=== PATIENT | male | born 1970 | race Caucasian/White ===

== ENCOUNTER 2017-10-07 17:55 | Inpatient (IN) | payer OTHER ==
[2017-10-07 19:38] VITALS: BMI 29.8
--- NOTE | 2017-10-07 20:58 | HP ---
CIWA Score - CIWA Score Nausea/Vomitin-No Nausea/No Vomiting Muscle Tremors: 2 Anxiety: 3 Agitation: 2 Paroxysmal Sweats: 1-Minimal Palms Moist Orientation: 0-Oriented Tacttile Disturbances: 0-None Auditory Disturbances: 0-None Visual Disturbances: 0-None Headache: 0-None Present CIWA-Ar Total Score: 8 Admission ROS S - HPI Chief Complaint: " I am here to detox from the pills and alcohol" Allergies/Adverse Reactions: Allergies Allergy/AdvReac Type Severity Reaction Status Date / Time No Known Allergies Allergy Verified 10/07/17 20:27 History of Present Illness: Patient is a 47 yo male with hx of nicotine, crack/ cocaine, xanax / klonopin. [facility] , on 130 mg qd, last medicated today. Denies suicidal / homicidal ideation or suicide attempts. Reports hx seizure when withdrawing from klonopin, last seizure 1 week ago. PMHX: depression, anxiety, insomnia. Last detox 2 years ago at [facility]. Longest period of sobrierity 6 months. Exam Limitations: No Limitations - Ebola screening Have you traveled outside of the country in the last 21 days: No (N) Have you had contact with anyone from an Ebola affected area: No Have you been sick,other than usual withdrawal symptoms: No Do you have a fever: No - Review of Systems Constitutional: Chills, Changes in sleep, Unintentional Wgt. Loss EENT: reports: See HPI Respiratory: reports: No Symptoms reported Cardiac: reports: No Symptoms Reported GI: reports: Constipated (last BM 2 days ago), Nausea, Poor Appetite, Poor Fluid Intake, Abdominal cramping : reports: No Symptoms Reported Musculoskeletal: reports: No Symptoms Reported Integumentary: reports: No Symptoms Reported Neuro: reports: See HPI Endocrine: reports: Increased Thirst Hematology: reports: No Symptoms Reported Psychiatric: reports: Orientated x3, Anxious, Depressed Other Systems: Reviewed and Negative Patient History - Patient Medical History Hx Anemia: No Hx Asthma: No Hx Chronic Obstructive Pulmonary Disease (COPD): No Hx Cancer: No Hx Cardiac Disorders: No Hx Congestive Heart Failure: No Hx Hypertension: No Hx Hypercholesterolemia: No Hx Pacemaker: No HX Cerebrovascular Accident: No Hx Seizures: Yes (r/t benzo withdrawal one week ago ) Hx Dementia: No Hx Diabetes: No Hx Gastrointestinal Disorders: No Hx Liver Disease: No Hx Genitourinary Disorders: No Hx Sexually Transmitted Disorders: No Hx Renal Disease (ESRD): No Hx Thyroid Disease: No Hx Human Immunodeficiency Virus (HIV): No (NEGATIVE HX, refuses testing ) Hx Hepatitis C: No Hx Depression: Yes Hx Suicide Attempt: No Hx Bipolar Disorder: No Hx Schizophrenia: No - Patient Surgical History Past Surgical History: No Hx Neurologic Surgery: No Hx Cataract Extraction: No Hx Cardiac Surgery: No Hx Lung Surgery: No Hx Breast Surgery: No Hx Breast Biopsy: No Hx Abdominal Surgery: No Hx Appendectomy: No Hx Cholecystectomy: No Hx Genitourinary Surgery: No Hx Section: No Hx Orthopedic Surgery: No Anesthesia Reaction: No - PPD History Previous Implant?: Yes Documented Results: Negative w/o proof PPD to be Administered?: Yes - Smoking Cessation Smoking history: Current every day smoker Have you smoked in the past 12 months: Yes Aproximately how many cigarettes per day: 20 Cigars Per Day: 0 Hx Chewing Tobacco Use: No Initiated information on smoking cessation: Yes 'Breaking Loose' booklet given: 10/07/17 - Substance & Tx. History Hx Alcohol Use: Yes Hx Substance Use: Yes Substance Use Type: Alcohol, Cocaine, Tranquilizers Hx Substance Use Treatment: Yes ([facility] 2 years ago ) - Substances Abused Alcohol Route: Oral Frequency: Daily Amount used: LIQUOR- 2 PINTS, BEER- 2 SIX PACKS Age of first use: 20 Date of Last Use: 10/07/17 Alprazolam (Xanax) Route: Oral Frequency: Daily Amount used: 12mg Age of first use: 46 Date of Last Use: 10/07/17 Benzodiazepine (Klonopin) Route: Oral Frequency: Daily Amount used: 2mg Age of first use: 46 Date of Last Use: 10/07/17 Cocaine Route: Smoking Frequency: Daily Amount used: 10 bags Age of first use: 20 Date of Last Use: 10/06/17 Family Disease History - Family Disease History Family Disease History: Diabetes: Father (alive), Heart Disease: Father, Other: Father, Mother (, brain cancer ), Brother ( x 2 brothers CHF ) Admission Physical Exam BHS - Vital Signs Vital Signs: Vital Signs - 24 hr 10/07/17 19:25 Temperature 98.6 F Pulse Rate 54 L Respiratory 17 Rate Blood Pressure 113/70 - Physical General Appearance: Yes: Disheveled, Mild Distress, Anxious HEENTM: Yes: EOMI, Hearing grossly Normal, Normal ENT Inspection, Normocephalic , Normal Voice, KEITH, Pharynx Normal, Tm's normal Respiratory: Yes: Chest Non-Tender, Lungs Clear, Normal Breath Sounds, No Respiratory Distress, No Accessory Muscle Use Neck: Yes: No masses,lesions,Nodules, Trachea in good position Breast: Yes: Breast Exam Deferred Cardiology: Yes: Regular Rhythm, Regular Rate Abdominal: Yes: Normal Bowel Sounds, Non Tender, Soft, Protuberent Genitourinary: Yes: Within Normal Limits Back: Yes: Normal Inspection Musculoskeletal: Yes: full range of Motion, Gait Steady, Pelvis Stable Extremities: Yes: Normal Capillary Refill, Normal Inspection, Normal Range of Motion, Non-Tender Neurological: Yes: longitudinal float operator II-XII NML intact, Fully Oriented, Alert, Motor Strength 5/5, Depressed Affect Integumentary: Yes: Normal Color, Warm, Other Lymphatic: Yes: Within Normal Limits - Diagnostic (1) Nicotine dependence Current Visit: Yes Status: Chronic Qualifiers: Nicotine product type: cigarettes (2) Alcohol dependence with withdrawal Current Visit: Yes Status: Acute Qualifiers: Complication of substance-induced condition: uncomplicated Qualified Code(s ): F10.230 - Alcohol dependence with withdrawal, uncomplicated (3) Sedative, hypnotic or anxiolytic dependence with withdrawal, unspecified Current Visit: Yes Status: Acute (4) Depressed mood Current Visit: Yes Status: Acute (5) Opioid dependence on agonist therapy Current Visit: Yes Status: Acute (6) Cocaine dependence Current Visit: Yes Status: Acute Cleared for Admission [facility] - Detox or Rehab [facility] Level of Care: Medically Supervised Detox Regimen/Protocol: Valium [facility] Breath Alcohol Content Breath Alcohol Content: 0.009 Urine Drug Screen - Results Drug Screen Negative: No Urine Drug Screen Results: FELIBERTO-Cocaine, OPI-Opiates, BZO-Benzodiazepines, MTD- Methadone
[2017-10-07] MEDS ORDERED: IBUPROFEN 400 MG TABLET (FP) PO PRN (21:07)
[2017-10-07] MEDS ORDERED: LOPERAMIDE HCL 2 MG CAPSULE PO PRN (21:07)
[2017-10-07] MEDS ORDERED: MENTHOL/PHENOL 1 EACH UD MM PRN (21:07)
[2017-10-07] MEDS ORDERED: hydrOXYzine PAMOATE 50 MG CAPSULE (FP) PO PRN (21:07)
[2017-10-07] MEDS ORDERED: MAGNESIUM CITRATE 300 ML BOTTLE PO PRN (21:07)
[2017-10-07] MEDS ORDERED: ACETAMINOPHEN 325 MG TABLET (FP) PO PRN (21:07)
[2017-10-07] MEDS ORDERED: P-EPHED 60MG/TRIPROLIDI 2.5MG TABLET PO PRN (21:07)
[2017-10-07] MEDS ORDERED: MAGNESIUM HYDROX 2400MG/30ML ORAL SUSPENSION 30 ML CUP PO PRN (21:07)
[2017-10-07] MEDS ORDERED: NICOTINE POLACRILEX 2 MG GUM BUC PRN (21:07)
[2017-10-07] MEDS ORDERED: MAG HYDROX/AL HYDROX/SIMETH 30 ML UNIT-DOSE CUP PO PRN (21:22)
[2017-10-07] MEDS ORDERED: guaiFENesin/D-METHORPHAN HB 10 ML UNIT-DOSE CUPS PO PRN (21:22)
[2017-10-07] MEDS ORDERED: diazePAM 5 MG TABLET PO ONE (21:30)
[2017-10-07] MEDS: THIAMINE HCL 100 MG TABLET (FP) PO SCH (22:07)
[2017-10-07] MEDS: diazePAM 5 MG TABLET PO SCH (22:08)
[2017-10-08] MEDS: diazePAM 5 MG TABLET PO SCH ×3 (07:02→22:03)
[2017-10-08] MEDS ORDERED: METHADONE HCL 10 MG TABLET PO ONE (08:58)
[2017-10-08] MEDS ORDERED: METHADONE 120 MG, METHADONE 20 MG PO ONE (09:20)
[2017-10-08] MEDS ORDERED: METHADONE HCL 10 MG TABLET ONE (09:24)
[2017-10-08] MEDS ORDERED: METHADONE HCL 40 MG DISPERSABLE TABLET ONE (09:25)
[2017-10-08] MEDS: PRENATAL VITAMINS W/ FOLIC ACID TABLET (FP) PO SCH (09:27)
[2017-10-08] MEDS: diazePAM 5 MG TABLET PO PRN (09:27)
[2017-10-08] MEDS: NICOTINE 14 MG/24 HOURS TOPICAL PATCH TD SCH (09:27)
[2017-10-08 10:45] LABS: HEMATOCRIT 41.8 % (35.4-49); HEMOGLOBIN 13.9 GM/dL (11.7-16.9); MCH 29.9 pg (25.7-33.7); MCHC 33.3 g/dl (32.0-35.9); MEAN CELL VOLUME 89.8 fl (80-96); MEAN PLT VOLUME 9.4 fl (7.5-11.1); PLATELET COUNT 270 K/MM3 (134-434); RBC 4.65 M/mm3 (4.00-5.60); RDW 13.2 % (11.9-15.9); WHITE BLOOD COUNT 6.7 K/mm3 (4.0-10.0)
[2017-10-08 11:08] LABS: CHLORIDE 113 mmol/L (98-107); POTASSIUM 4.3 mmol/L (3.5-5.1); SODIUM 147 mmol/L (136-145)
[2017-10-08 11:16] LABS: ALBUMIN 3.2 g/dl (3.4-5.0); ALK PHOS 80 U/L (45-117); ANION GAP 6 (8-16); BILIRUBIN,TOTAL 0.6 mg/dL (0.2-1.0); BLOOD UREA NITROGEN 21 mg/dL (7-18); CALCIUM 8.6 mg/dL (8.5-10.1); CO2 28 mmol/L (21-32); CREATININE 1.1 mg/dL (0.7-1.3); GLUCOSE,RANDOM 100 mg/dL (74-106); SGOT/AST 11 U/L (15-37); SGPT/ALT 15 U/L (12-78); TOT PROT 5.9 g/dl (6.4-8.2)
--- NOTE | 2017-10-08 12:37 | PN ---
[facility] CIWA - CIWA Score Nausea/Vomitin-No Nausea/No Vomiting Muscle Tremors: 4-Moderate,w/Arms Extend Anxiety: 4-Mod. Anxious/Guarded Agitation: 4-Moderately Restless Paroxysmal Sweats: 1-Minimal Palms Moist Orientation: 0-Oriented Tacttile Disturbances: 0-None Auditory Disturbances: 0-None Visual Disturbances: 0-None Headache: 0-None Present CIWA-Ar Total Score: 13 S Progress Note (SOAP) Subjective: ANXIETY,SWEATS,FATIGUE,INTERMITTENT SLEEP. Objective: 10/08/17 12:38 Vital Signs 10/08/17 10/08/17 06:49 09:24 Temperature 96 F L 97.6 F Pulse Rate 60 60 Respiratory 18 18 Rate Blood Pressure 92/65 128/70 Laboratory Tests 10/08/17 10/08/17 07:20 07:20 WBC 6.7 RBC 4.65 Hgb 13.9 D Hct 41.8 MCV 89.8 MCH 29.9 MCHC 33.3 RDW 13.2 Plt Count 270 MPV 9.4 Sodium 147 H Potassium 4.3 Chloride 113 H Carbon Dioxide 28 Anion Gap 6 L BUN 21 H Creatinine 1.1 D Creat Clearance w eGFR > 60 Random Glucose 100 Calcium 8.6 Total Bilirubin 0.6 AST 11 L ALT 15 D Alkaline Phosphatase 80 D Total Protein 5.9 L Albumin 3.2 L OTHER LABS PENDING Assessment: 10/08/17 12:39 WITHDRAWAL SX Plan: CONTINUE DETOX INCREASE PO FLUIDS
--- NOTE | 2017-10-08 14:32 | EKG ---
Test Reason : Blood Pressure : / mmHG Vent. Rate : 055 BPM Atrial Rate : 055 BPM P-R Int : 164 ms QRS Dur : 092 ms QT Int : 486 ms P-R-T Axes : 047 064 059 degrees QTc Int : 464 ms SINUS BRADYCARDIA OTHERWISE NORMAL ECG NO PREVIOUS ECGS AVAILABLE Confirmed by CAROLYN RIOS, RYLEE ([id number]) on 10/08/2017 2:32:32 PM Referred By: Confirmed By:RYLEE LEON MD
--- NOTE | 2017-10-08 14:33 | CONSULT ---
[facility] Psychiatric Consult - Data Date of interview: 10/08/17 Admission source: [facility] Identifying data: Readmission to [facility] for this 47 y/o male seeking detox tretment on for alcohol,opioid,cocaine and benzodiazepine dependence.Patient is single,a father of two,homeless,unemployed and supported on food stamps. Substance Abuse History: Discused in this session.Patient confirms depedence on xanax,cocaine,alcohol and nicotine.Currrently on methadone maintenance (130 mg/ day) at one of [facility] program in the [place].Details in current [facility] report : Smoking history: Current every day smoker. Have you smoked in the past 12 months: Yes. Aproximately how many cigarettes per day: 20. Cigars Per Day: 0. Hx Chewing Tobacco Use: No. Initiated information on smoking cessation : Yes. 'Breaking Loose' booklet given: 10/07/17. - Substance & Tx. History. Hx Alcohol Use: Yes. Hx Substance Use: Yes. Substance Use Type: Alcohol, Cocaine, Tranquilizers. Hx Substance Use Treatment: Yes ([facility] 2 years ago ). - Substances Abused. Alcohol. Route: Oral. Frequency: Daily. Amount used: LIQUOR- 2 PINTS, BEER- 2 SIX PACKS. Age of first use: 20. Date of Last Use: 10/07/17. Alprazolam (Xanax). Route: Oral. Frequency: Daily. Amount used: 12mg. Age of first use: 46. Date of Last Use: 10/07/17. Benzodiazepine (Klonopin). Route: Oral. Frequency: Daily. Amount used: 2mg. Age of first use: 46. Date of Last Use: 10/07/17. Cocaine. Route: Smoking. Frequency: Daily. Amount used: 10 bags. Age of first use: 20. Date of Last Use: 10/06/17. Family Disease History Medical History: Patient endorses good general health.Noted history of withdrawal-related seizures. Psychiatric History: Patient denies. Physical/Sexual Abuse/Trauma History: Patient denies. Additional Comment: Urine Drug Screen Results: FELIBERTO-Cocaine, OPI-Opiates, BZO- Benzodiazepines, MTD-Methadone.Noted. Mental Status Exam - Mental Status Exam Alert and Oriented to: Time, Place, Person Cognitive Function: Good Patient Appearance: Unkempt, Disheveled (tall stature) Mood: Nervous, Withdrawn, Anxious Affect: Mood Congruent, Constricted Patient Behavior: Fatigued, Cooperative Speech Pattern: Clear, Appropriate Voice Loudness: Normal Thought Process: Intact, Goal Oriented Thought Disorder: Not Present Hallucinations: Denies Suicidal Ideation: Denies Homicidal Ideation: Denies Insight/Judgement: Poor Sleep: Well Appetite: Good Muscle strength/Tone: Normal Gait/Station: Normal Psychiatric Findings - Problem List ([place] 1, 2,3) (1) Opioid dependence on agonist therapy Current Visit: Yes Status: Acute (2) Alcohol dependence with withdrawal Current Visit: Yes Status: Acute Qualifiers: Complication of substance-induced condition: uncomplicated Qualified Code(s ): F10.230 - Alcohol dependence with withdrawal, uncomplicated (3) Cocaine dependence Current Visit: Yes Status: Acute (4) Sedative, hypnotic or anxiolytic dependence with withdrawal, unspecified Current Visit: Yes Status: Acute (5) Nicotine dependence Current Visit: Yes Status: Acute Qualifiers: Nicotine product type: cigarettes Substance use status: in withdrawal Qualified Code(s): F17.213 - Nicotine dependence, cigarettes, with withdrawal (6) Substance induced mood disorder Current Visit: Yes Status: Acute (7) Insomnia Current Visit: Yes Status: Acute - Initial Treatment Plan Initial Treatment Plan: Psychoeducation.Sleep hygiene discussed in session.Detoxification in progress.Insomnia is addressed with melatonin 5 mg orally at bedtime.Side effects/benefits discussed with the patient.Mr Knight is in agreement with this careplan.Observation.
[2017-10-08 20:44] LABS: URINE APPEARANCE TURBID; URINE BILIRUBIN NEGATIVE (<2.0 mg/dL); URINE COLOR AMBER; URINE GLUCOSE (UA) NEGATIVE (NEGATIVE); URINE KETONE NEGATIVE (NEGATIVE); URINE LEUK ESTERASE NEGATIVE (NEGATIVE); URINE NITRITE NEGATIVE (NEGATIVE); URINE PROTEIN NEGATIVE (NEGATIVE)
[2017-10-08] MEDS: THIAMINE HCL 100 MG TABLET (FP) PO SCH (22:02)
[2017-10-09] MEDS ORDERED: METHADONE HCL 10 MG TABLET ONE (04:48)
[2017-10-09] MEDS ORDERED: METHADONE HCL 40 MG DISPERSABLE TABLET ONE (04:49)
[2017-10-09] MEDS: METHADONE 120 MG, METHADONE 20 MG PO SCH (05:26)
[2017-10-09] MEDS: diazePAM 5 MG TABLET PO PRN ×3 (05:28→17:02)
[2017-10-09] MEDS ORDERED: METHADONE HCL 10 MG TABLET PO SCH (06:00)
[2017-10-09] MEDS: PRENATAL VITAMINS W/ FOLIC ACID TABLET (FP) PO SCH (10:36)
[2017-10-09] MEDS: diazePAM 5 MG TABLET PO SCH ×2 (10:36→22:24)
[2017-10-09] MEDS: NICOTINE 14 MG/24 HOURS TOPICAL PATCH TD SCH (10:37)
--- NOTE | 2017-10-09 16:13 | PN ---
[facility] CIWA - CIWA Score Nausea/Vomitin-No Nausea/No Vomiting Muscle Tremors: None Anxiety: 4-Mod. Anxious/Guarded Agitation: 3 Paroxysmal Sweats: 3 Orientation: 0-Oriented Tacttile Disturbances: 2-Mild Itch/Numbness/Burn Auditory Disturbances: 1-Very Mild Visual Disturbances: 0-None Headache: 0-None Present CIWA-Ar Total Score: 13 BHS Progress Note (SOAP) Subjective: Sweating, Fatigue, Interrupted Sleep, Stomach Cramping, Constipation, Anxious. Objective: PATIENT A & O X 3. NO ACUTE DISTRESS. 10/09/17 16:14 Vital Signs Temperature 96.2 F L 10/09/17 13:38 Pulse Rate 61 10/09/17 13:38 Respiratory Rate 18 10/09/17 13:38 Blood Pressure 113/64 10/09/17 13:38 O2 Sat by Pulse Oximetry (%) Laboratory Tests 10/07/17 10/08/17 10/08/17 16:00 07:20 07:20 WBC 6.7 RBC 4.65 Hgb 13.9 D Hct 41.8 MCV 89.8 MCH 29.9 MCHC 33.3 RDW 13.2 Plt Count 270 MPV 9.4 Sodium 147 H Potassium 4.3 Chloride 113 H Carbon Dioxide 28 Anion Gap 6 L BUN 21 H Creatinine 1.1 D Creat Clearance w eGFR > 60 Random Glucose 100 Calcium 8.6 Total Bilirubin 0.6 AST 11 L ALT 15 D Alkaline Phosphatase 80 D Total Protein 5.9 L Albumin 3.2 L Urine Color Roro Urine Appearance Turbid Urine pH 5.0 Ur Specific [place] 1.031 Urine Protein Negative Urine Glucose (UA) Negative Urine Ketones Negative Urine Blood Negative Urine Nitrite Negative Urine Bilirubin Negative Urine Urobilinogen 2.0 Ur Leukocyte Esterase Negative RPR Titer 10/08/17 07:20 WBC RBC Hgb Hct MCV MCH MCHC RDW Plt Count MPV Sodium Potassium Chloride Carbon Dioxide Anion Gap BUN Creatinine Creat Clearance w eGFR Random Glucose Calcium Total Bilirubin AST ALT Alkaline Phosphatase Total Protein Albumin Urine Color Urine Appearance Urine pH Ur Specific [place] Urine Protein Urine Glucose (UA) Urine Ketones Urine Blood Urine Nitrite Urine Bilirubin Urine Urobilinogen Ur Leukocyte Esterase RPR Titer Nonreactive LABS NOTED. Assessment: 10/09/17 16:14 WITHDRAWAL SYMPTOMS. Plan: CONTINUE DETOX. INCREASE DAILY PO FLUID INTAKE. ENCOURAGE AMBULATION.
[2017-10-09] MEDS: MELATONIN 5 MG TABLETS PO PRN (22:24)
[2017-10-09] MEDS: THIAMINE HCL 100 MG TABLET (FP) PO SCH (22:24)
[2017-10-10] MEDS ORDERED: METHADONE HCL 10 MG TABLET ONE (04:24)
[2017-10-10] MEDS ORDERED: METHADONE HCL 40 MG DISPERSABLE TABLET ONE (04:25)
[2017-10-10] MEDS: METHADONE 120 MG, METHADONE 20 MG PO SCH (06:03)
[2017-10-10] MEDS: diazePAM 5 MG TABLET PO PRN ×3 (06:03→16:46)
[2017-10-10] MEDS: PRENATAL VITAMINS W/ FOLIC ACID TABLET (FP) PO SCH (09:12)
[2017-10-10] MEDS: diazePAM 5 MG TABLET PO SCH ×2 (09:12→22:23)
[2017-10-10] MEDS: NICOTINE 14 MG/24 HOURS TOPICAL PATCH TD SCH (09:13)
--- NOTE | 2017-10-10 17:30 | PN ---
BHS Progress Note (SOAP) Subjective: Interrupted sleep, Tremors, Body Aches, Fatigue, Nausea. Objective: PATIENT A & O X 3, OBSERVED AMBULATING ON UNIT. NO ACUTE DISTRESS. 10/10/17 17:29 Vital Signs Temperature 97.5 F L 10/10/17 14:15 Pulse Rate 68 10/10/17 14:15 Respiratory Rate 18 10/10/17 14:15 Blood Pressure 115/71 10/10/17 14:15 O2 Sat by Pulse Oximetry (%) Laboratory Tests 10/07/17 10/08/17 10/08/17 16:00 07:20 07:20 WBC 6.7 RBC 4.65 Hgb 13.9 D Hct 41.8 MCV 89.8 MCH 29.9 MCHC 33.3 RDW 13.2 Plt Count 270 MPV 9.4 Sodium 147 H Potassium 4.3 Chloride 113 H Carbon Dioxide 28 Anion Gap 6 L BUN 21 H Creatinine 1.1 D Creat Clearance w eGFR > 60 Random Glucose 100 Calcium 8.6 Total Bilirubin 0.6 AST 11 L ALT 15 D Alkaline Phosphatase 80 D Total Protein 5.9 L Albumin 3.2 L Urine Color Roro Urine Appearance Turbid Urine pH 5.0 Ur Specific [place] 1.031 Urine Protein Negative Urine Glucose (UA) Negative Urine Ketones Negative Urine Blood Negative Urine Nitrite Negative Urine Bilirubin Negative Urine Urobilinogen 2.0 Ur Leukocyte Esterase Negative RPR Titer 10/08/17 07:20 WBC RBC Hgb Hct MCV MCH MCHC RDW Plt Count MPV Sodium Potassium Chloride Carbon Dioxide Anion Gap BUN Creatinine Creat Clearance w eGFR Random Glucose Calcium Total Bilirubin AST ALT Alkaline Phosphatase Total Protein Albumin Urine Color Urine Appearance Urine pH Ur Specific [place] Urine Protein Urine Glucose (UA) Urine Ketones Urine Blood Urine Nitrite Urine Bilirubin Urine Urobilinogen Ur Leukocyte Esterase RPR Titer Nonreactive LABS NOTED. Assessment: 10/10/17 17:29 WITHDRAWAL SYMPTOMS. Plan: CONTINUE DETOX. INCREASE DAILY PO FLUID INTAKE.
[2017-10-10] MEDS: THIAMINE HCL 100 MG TABLET (FP) PO SCH (22:23)
[2017-10-10] MEDS: MELATONIN 5 MG TABLETS PO PRN (22:24)
[2017-10-11] MEDS ORDERED: METHADONE HCL 40 MG DISPERSABLE TABLET ONE (03:18)
[2017-10-11] MEDS ORDERED: METHADONE HCL 10 MG TABLET ONE (03:18)
[2017-10-11] MEDS: METHADONE 120 MG, METHADONE 20 MG PO SCH (05:46)
[2017-10-11 06:18] VITALS: PULSE 64
[2017-10-11 09:21] VITALS: BP 118/66; TEMP 97.7
[2017-10-11] MEDS: PRENATAL VITAMINS W/ FOLIC ACID TABLET (FP) PO SCH (09:36)
[2017-10-11] MEDS: NICOTINE 14 MG/24 HOURS TOPICAL PATCH TD SCH (09:37)
[2017-10-11] MEDS ORDERED: diazePAM 5 MG TABLET PO SCH (10:00)
--- NOTE | 2017-10-11 13:47 | PN ---
BHS Progress Note (SOAP) Subjective: Patient denies current Detox symptoms and reports that he feels well overall. Objective: PATIENT A & O X 3, OBSERVED AMBULATING ON UNIT. NO ACUTE DISTRESS. 10/11/17 13:45 Vital Signs Temperature 97.7 F 10/11/17 09:20 Pulse Rate 64 10/11/17 09:20 Respiratory Rate 18 10/11/17 09:20 Blood Pressure 118/66 10/11/17 09:20 O2 Sat by Pulse Oximetry (%) Laboratory Tests 10/07/17 10/08/17 10/08/17 16:00 07:20 07:20 WBC 6.7 RBC 4.65 Hgb 13.9 D Hct 41.8 MCV 89.8 MCH 29.9 MCHC 33.3 RDW 13.2 Plt Count 270 MPV 9.4 Sodium 147 H Potassium 4.3 Chloride 113 H Carbon Dioxide 28 Anion Gap 6 L BUN 21 H Creatinine 1.1 D Creat Clearance w eGFR > 60 Random Glucose 100 Calcium 8.6 Total Bilirubin 0.6 AST 11 L ALT 15 D Alkaline Phosphatase 80 D Total Protein 5.9 L Albumin 3.2 L Urine Color Roro Urine Appearance Turbid Urine pH 5.0 Ur Specific [place] 1.031 Urine Protein Negative Urine Glucose (UA) Negative Urine Ketones Negative Urine Blood Negative Urine Nitrite Negative Urine Bilirubin Negative Urine Urobilinogen 2.0 Ur Leukocyte Esterase Negative RPR Titer 10/08/17 07:20 WBC RBC Hgb Hct MCV MCH MCHC RDW Plt Count MPV Sodium Potassium Chloride Carbon Dioxide Anion Gap BUN Creatinine Creat Clearance w eGFR Random Glucose Calcium Total Bilirubin AST ALT Alkaline Phosphatase Total Protein Albumin Urine Color Urine Appearance Urine pH Ur Specific [place] Urine Protein Urine Glucose (UA) Urine Ketones Urine Blood Urine Nitrite Urine Bilirubin Urine Urobilinogen Ur Leukocyte Esterase RPR Titer Nonreactive LABS NOTED. Assessment: 10/11/17 13:46 COMPLETION OF DETOX REGIMEN. Plan: PATIENT SCHEDULED FOR DISCHARGE FROM DETOX UNIT TODAY. PATIENT GOING ON TO [facility] FOR AFTERCARE.
--- NOTE | 2017-10-11 13:56 | DS ---
[facility] Detox Discharge Summary Admission Date: 10/07/17 Discharge Date: 10/11/17 - History Present History: Alcohol Dependence, Cocaine Dependence, Opioid Dependence, Sedative Dependence, MMTP Additional Comments: PAT[facility] FOR [facility]CARE. PATIENT WAS DISCHARGED FROM DETOX UNIT IN STABLE MEDICAL CONDITION. Pertinent Past History: Depression, Nicotine Dependence, Insomnia, MMTP, History of Seizures (due to Withdrawal). - Physical Exam Results Vital Signs: Vital Signs Temperature 97.7 F 10/11/17 09:20 Pulse Rate 64 10/11/17 09:20 Respiratory Rate 18 10/11/17 09:20 Blood Pressure 118/66 10/11/17 09:20 O2 Sat by Pulse Oximetry (%) Pertinent Admission Physical Exam Findings: WITHDRAWAL SYMPTOMS. Laboratory Tests 10/07/17 10/08/17 10/08/17 16:00 07:20 07:20 WBC 6.7 RBC 4.65 Hgb 13.9 D Hct 41.8 MCV 89.8 MCH 29.9 MCHC 33.3 RDW 13.2 Plt Count 270 MPV 9.4 Sodium 147 H Potassium 4.3 Chloride 113 H Carbon Dioxide 28 Anion Gap 6 L BUN 21 H Creatinine 1.1 D Creat Clearance w eGFR > 60 Random Glucose 100 Calcium 8.6 Total Bilirubin 0.6 AST 11 L ALT 15 D Alkaline Phosphatase 80 D Total Protein 5.9 L Albumin 3.2 L Urine Color Roro Urine Appearance Turbid Urine pH 5.0 Ur Specific [place] 1.031 Urine Protein Negative Urine Glucose (UA) Negative Urine Ketones Negative Urine Blood Negative Urine Nitrite Negative Urine Bilirubin Negative Urine Urobilinogen 2.0 Ur Leukocyte Esterase Negative RPR Titer 10/08/17 07:20 WBC RBC Hgb Hct MCV MCH MCHC RDW Plt Count MPV Sodium Potassium Chloride Carbon Dioxide Anion Gap BUN Creatinine Creat Clearance w eGFR Random Glucose Calcium Total Bilirubin AST ALT Alkaline Phosphatase Total Protein Albumin Urine Color Urine Appearance Urine pH Ur Specific [place] Urine Protein Urine Glucose (UA) Urine Ketones Urine Blood Urine Nitrite Urine Bilirubin Urine Urobilinogen Ur Leukocyte Esterase RPR Titer Nonreactive LABS NOTED. - Treatment Hospital Course: Detox Protocol Followed, Detoxed Safely, Responded well, Discharged Condition Good, Rehab Referral Accepted [facility] . - Medication Discharge Medications: Ambulatory Orders NK [No Known Home Medication] 06/03/13 - Diagnosis (1) Alcohol dependence with withdrawal Status: Acute Qualifiers: Complication of substance-induced condition: uncomplicated Qualified Code(s ): F10.230 - Alcohol dependence with withdrawal, uncomplicated (2) Cocaine dependence Status: Acute (3) Depressed mood Status: Acute (4) Nicotine dependence Status: Acute Qualifiers: Nicotine product type: cigarettes Substance use status: in withdrawal Qualified Code(s): F17.213 - Nicotine dependence, cigarettes, with withdrawal (5) Opioid dependence on agonist therapy Status: Chronic (6) Sedative, hypnotic or anxiolytic dependence with withdrawal, unspecified Status: Acute (7) Insomnia Status: Acute Qualifiers: Insomnia type: unspecified Qualified Code(s): G47.00 - Insomnia, unspecified (8) Substance induced mood disorder Status: Acute - AMA Did Patient Leave Against Medical Advice: No
== END 2017-10-11 11:20 | disposition other institution (70) | DRG 773 ==
LOC: YASAS 17:55 → Y3N 20:51
PROVIDERS: ADMIT Internal Medicine; ATTEND Internal Medicine
PROC: HZ2ZZZZ Detoxification Services for Substance Abuse Treatment (ICD-10-PCS; principal; 2017-10-07)
DX: F11.23 Opioid dependence with withdrawal (principal); F13.230 Sedative, hypnotic or anxiolytic dependence with withdrawal, uncomplicated; F10.230 Alcohol dependence with withdrawal, uncomplicated; F14.20 Cocaine dependence, uncomplicated; F17.213 Nicotine dependence, cigarettes, with withdrawal; F32.9 Major depressive disorder, single episode, unspecified; G40.509 Epileptic seizures related to external causes, not intractable, without status epilepticus; G47.00 Insomnia, unspecified
CPT/HCPCS: 36415; 80053; 81003; 85027; 86593; 93005; 93010

== ENCOUNTER 2017-10-11 11:26 | Inpatient (IN) | payer OTHER ==
[2017-10-11] MEDS ORDERED: ACETAMINOPHEN 325 MG TABLET (FP) PO PRN (12:01)
[2017-10-11] MEDS ORDERED: MENTHOL/PHENOL 1 EACH UD MM PRN (12:01)
[2017-10-11] MEDS ORDERED: guaiFENesin/D-METHORPHAN HB 10 ML UNIT-DOSE CUPS PO PRN (12:01)
[2017-10-11] MEDS ORDERED: MAGNESIUM CITRATE 300 ML BOTTLE PO PRN (12:01)
[2017-10-11] MEDS ORDERED: P-EPHED 60MG/TRIPROLIDI 2.5MG TABLET PO PRN (12:01)
[2017-10-11] MEDS ORDERED: NICOTINE POLACRILEX 2 MG GUM BUC PRN (12:01)
[2017-10-11] MEDS ORDERED: IBUPROFEN 400 MG TABLET (FP) PO PRN (12:11)
[2017-10-11] MEDS ORDERED: MAGNESIUM HYDROX 2400MG/30ML ORAL SUSPENSION 30 ML CUP PO PRN (12:11)
[2017-10-11] MEDS ORDERED: LOPERAMIDE HCL 2 MG CAPSULE PO PRN (12:11)
[2017-10-11] MEDS ORDERED: MAG HYDROX/AL HYDROX/SIMETH 30 ML UNIT-DOSE CUP PO PRN (12:11)
[2017-10-11 12:55] VITALS: BMI 31.8
--- NOTE | 2017-10-11 13:58 | HP ---
[facility] Rehab Assess/Revision - Admission History Admitted to Rehab from: [facility] Date of Admission to Rehab: 10/11/2017 - Vital signs Vital Signs: Vital Signs Period Temp Pulse Resp BP Sys/See Pulse Ox Last 24 Hr 98.6 F 55 18 117/66 - Findings Detox History & Physical reviewed: Yes Concur with findings: Yes Comments/Additional Findings: PATIENT'S MEDICAL / MEDICATION HISTORY REVIEWED PRIOR TO DISCHARGE FROM DETOX UNIT. PATIENT WAS DISCHARGED FROM DETOX UNIT TO BE TAKEN TO REHAB UNIT IN STABLE MEDICAL CONDITION. Inpatient Rehab Admission - Initial Determination Are CD services needed?: Yes Free of communicable disease: Yes Not in need of hospitalization: Yes - Rehab Admission Criteria Previous failed treatment: Yes Comorbidities: Yes Patient is meeting Inpatient Rehab admission criteria:: Yes
[2017-10-11] MEDS ORDERED: MELATONIN 5 MG TABLETS PO PRN (22:00)
[2017-10-11] MEDS: THIAMINE HCL 100 MG TABLET (FP) PO SCH (22:07)
[2017-10-12] MEDS ORDERED: METHADONE HCL 10 MG TABLET PO SCH (06:00)
[2017-10-12] MEDS ORDERED: METHADONE HCL 10 MG TABLET (FOR DETOX USE ONLY) ONE (06:02)
[2017-10-12] MEDS ORDERED: METHADONE HCL 40 MG DISPERSABLE TABLET ONE (06:02)
[2017-10-12] MEDS: METHADONE 120 MG, METHADONE (DETOX) 20 MG PO SCH (06:04)
[2017-10-12] MEDS: PRENATAL VITAMINS W/ FOLIC ACID TABLET (FP) PO SCH (09:53)
[2017-10-12] MEDS: NICOTINE 14 MG/24 HOURS TOPICAL PATCH TD SCH (10:29)
[2017-10-12] MEDS: THIAMINE HCL 100 MG TABLET (FP) PO SCH (21:57)
[2017-10-13] MEDS ORDERED: METHADONE HCL 10 MG TABLET (FOR DETOX USE ONLY) ONE (05:57)
[2017-10-13] MEDS ORDERED: METHADONE HCL 40 MG DISPERSABLE TABLET ONE (05:58)
[2017-10-13] MEDS: METHADONE 120 MG, METHADONE (DETOX) 20 MG PO SCH (06:04)
[2017-10-13] MEDS: METHADONE 120 MG, METHADONE 20 MG PO SCH (07:44)
[2017-10-13] MEDS: NICOTINE 14 MG/24 HOURS TOPICAL PATCH TD SCH (10:03)
[2017-10-13] MEDS: PRENATAL VITAMINS W/ FOLIC ACID TABLET (FP) PO SCH (10:03)
--- NOTE | 2017-10-13 11:30 | HP ---
Psychiatrist Admission - Data Date of interview: 10/13/17 Admission source: Transfer from [address] [place] [address] Identifying data: First admission to [address] for this 47 y/o male who had completed detox treatment on [address] [place] [address] and is now pursuing rehabilitation to address alcohol,opioid,cocaine and benzodiazepine dependence.Patient is single,a father of two,homeless,unemployed and supported on food stamps. Medical History: Recent history of withdrawal-related seizures (a week ago) .Otherwise, the patient endorses good general health. Psychiatric History: Patient denies. Physical/Sexual Abuse/Trauma History: Patient denies. Additional Comment: Discussed in this interview.Patient confirms daily use of crack/cocaine,xanax and alcohol as described in this imported [facility] report : Smoking history: Current every day smoker. Have you smoked in the past 12 months: Yes. Aproximately how many cigarettes per day: 20. Cigars Per Day: 0. Hx Chewing Tobacco Use: No. Initiated information on smoking cessation: Yes. 'Breaking Loose' booklet given: 10/07/17. - Substance & Tx. History. Hx Alcohol Use: Yes. Hx Substance Use: Yes. Substance Use Type: Alcohol, Cocaine , Tranquilizers. Hx Substance Use Treatment: Yes ([facility] 2 years ago ). - Substances Abused. Alcohol. Route: Oral. Frequency: Daily. Amount used: LIQUOR- 2 PINTS, BEER- 2 SIX PACKS. Age of first use: 20. Date of Last Use: . Alprazolam (Xanax). Route: Oral. Frequency: Daily. Amount used: 12mg. Age of first use: 46. Date of Last Use: 10/07/17. Benzodiazepine ( Klonopin). Route: Oral. Frequency: Daily. Amount used: 2mg. Age of first use : 46. Date of Last Use: 10/07/17. Cocaine. Route: Smoking. Frequency: Daily. Amount used: 10 bags. Age of first use: 20. Date of Last Use: . Urine Drug Screen Results: FELIBERTO-Cocaine, OPI-Opiates, BZO-Benzodiazepines, MTD-Methadone.Noted. Vital Signs: Vital Signs - 24 hr 10/13/17 10/13/17 10/13/17 00:30 03:27 06:51 Temperature 98.1 F Pulse Rate 54 L Respiratory 18 18 18 Rate Blood Pressure 107/69 Allergies/Adverse Reactions: Allergies Allergy/AdvReac Type Severity Reaction Status Date / Time No Known Allergies Allergy Verified 10/07/17 20:27 - Substance Abuse/Tx History Hx Alcohol Use: Yes Hx Substance Use: Yes (nicotine,alcohol,cocaine benzodiazepines) Substance Use Type: Alcohol, Cocaine, Tranquilizers Hx Substance Use Treatment: Yes (patient is currently on methadone maintenance - 140 mg/day - at [facility]) Mental Status Exam - Mental Status Exam Alert and Oriented to: Time, Place, Person Cognitive Function: Good Patient Appearance: Well Groomed Mood: Nervous Affect: Appropriate, Normal Range Patient Behavior: Cooperative Speech Pattern: Clear, Appropriate Thought Process: Intact, Goal Oriented Thought Disorder: Not Present Hallucinations: Denies Suicidal Ideation: Denies Homicidal Ideation: Denies Insight/Judgement: Fair Sleep: Poorly, Difficulty falling asleep Appetite: Good Muscle strength/Tone: Normal Gait/Station: Normal Psychiatric Findings - Problem List ([facility] 1, 2,3) (1) Opioid dependence on agonist therapy Current Visit: Yes Status: Acute (2) Alcohol dependence Current Visit: Yes Status: Acute (3) Cocaine dependence Current Visit: Yes Status: Acute (4) Nicotine dependence Current Visit: Yes Status: Acute Qualifiers: Nicotine product type: cigarettes Substance use status: in withdrawal Qualified Code(s): F17.213 - Nicotine dependence, cigarettes, with withdrawal (5) Substance induced mood disorder Current Visit: Yes Status: Acute (6) Insomnia Current Visit: Yes Status: Acute Qualifiers: Insomnia type: unspecified Qualified Code(s): G47.00 - Insomnia, unspecified - Initial Treatment Plan Initial Treatment Plan: Psychoeducation and support.Sleep hygiene.Group/ Individual psychotherapy.Insomnia is addressed with trazodone 50 mg po hs.Side effects/benefits discussed with the patient.Mr Knight is made aware of the risk of priapism and he is advised to alert MD/RN if occurrence of erectile phenomena such as painful + prolonged erection.Patient agrees to this careplan.Observation.
[2017-10-13] MEDS: THIAMINE HCL 100 MG TABLET (FP) PO SCH (22:22)
[2017-10-13] MEDS: traZODone HCL 50 MG TABLET (FP) PO SCH (22:22)
[2017-10-14] MEDS ORDERED: METHADONE HCL 40 MG DISPERSABLE TABLET ONE (02:46)
[2017-10-14] MEDS ORDERED: METHADONE HCL 10 MG TABLET ONE (02:46)
[2017-10-14] MEDS: METHADONE 120 MG, METHADONE 20 MG PO SCH (06:00)
[2017-10-14] MEDS: PRENATAL VITAMINS W/ FOLIC ACID TABLET (FP) PO SCH (09:53)
[2017-10-14] MEDS: NICOTINE 14 MG/24 HOURS TOPICAL PATCH TD SCH (09:53)
--- NOTE | 2017-10-14 16:08 | PN ---
S Progress Note Note: patient c/o of small painless lump on RLQ. Denies pain, tenderness or abdominal discomfort. Vital Signs Temperature 98.1 F 10/14/17 06:50 Pulse Rate 63 10/14/17 06:50 Respiratory Rate 18 10/14/17 06:50 Blood Pressure 85/61 10/14/17 06:50 O2 Sat by Pulse Oximetry (%) A/P Patient Aox3, no distress no adventitious breath sounds full ROM, ambulating in the unit BS x4, non-tender, no distended, +small painless lump RLQ Plan: Increase fluids continue to monitor Patient advise to follow up with PMD
[2017-10-14] MEDS: THIAMINE HCL 100 MG TABLET (FP) PO SCH (22:05)
[2017-10-14] MEDS: traZODone HCL 50 MG TABLET (FP) PO SCH (22:05)
[2017-10-15] MEDS ORDERED: METHADONE HCL 10 MG TABLET ONE (04:29)
[2017-10-15] MEDS ORDERED: METHADONE HCL 40 MG DISPERSABLE TABLET ONE (04:29)
[2017-10-15] MEDS: METHADONE 120 MG, METHADONE 20 MG PO SCH (05:54)
[2017-10-15] MEDS: PRENATAL VITAMINS W/ FOLIC ACID TABLET (FP) PO SCH (10:10)
[2017-10-15] MEDS: NICOTINE 14 MG/24 HOURS TOPICAL PATCH TD SCH (10:11)
[2017-10-15] MEDS: traZODone HCL 50 MG TABLET (FP) PO SCH (22:04)
[2017-10-15] MEDS: THIAMINE HCL 100 MG TABLET (FP) PO SCH (22:04)
[2017-10-16] MEDS ORDERED: METHADONE HCL 10 MG TABLET ONE (05:00)
[2017-10-16] MEDS ORDERED: METHADONE HCL 40 MG DISPERSABLE TABLET ONE (05:01)
[2017-10-16] MEDS: METHADONE 120 MG, METHADONE 20 MG PO SCH (05:50)
[2017-10-16] MEDS: NICOTINE 14 MG/24 HOURS TOPICAL PATCH TD SCH (09:39)
[2017-10-16] MEDS: PRENATAL VITAMINS W/ FOLIC ACID TABLET (FP) PO SCH (09:39)
[2017-10-16] MEDS: traZODone HCL 50 MG TABLET (FP) PO SCH (22:39)
[2017-10-16] MEDS: THIAMINE HCL 100 MG TABLET (FP) PO SCH (22:40)
[2017-10-17] MEDS ORDERED: METHADONE HCL 10 MG TABLET ONE (03:46)
[2017-10-17] MEDS ORDERED: METHADONE HCL 40 MG DISPERSABLE TABLET ONE (03:46)
[2017-10-17] MEDS: METHADONE 120 MG, METHADONE 20 MG PO SCH (05:55)
[2017-10-17] MEDS: PRENATAL VITAMINS W/ FOLIC ACID TABLET (FP) PO SCH (09:23)
[2017-10-17] MEDS: NICOTINE 14 MG/24 HOURS TOPICAL PATCH TD SCH (09:23)
[2017-10-17] MEDS: traZODone HCL 50 MG TABLET (FP) PO SCH (23:41)
[2017-10-17] MEDS: THIAMINE HCL 100 MG TABLET (FP) PO SCH (23:41)
[2017-10-18] MEDS ORDERED: METHADONE HCL 10 MG TABLET ONE (03:06)
[2017-10-18] MEDS ORDERED: METHADONE HCL 40 MG DISPERSABLE TABLET ONE (03:06)
[2017-10-18] MEDS: METHADONE 120 MG, METHADONE 20 MG PO SCH (06:01)
[2017-10-18] MEDS: PRENATAL VITAMINS W/ FOLIC ACID TABLET (FP) PO SCH (09:52)
[2017-10-18] MEDS: NICOTINE 14 MG/24 HOURS TOPICAL PATCH TD SCH (09:52)
[2017-10-18] MEDS: THIAMINE HCL 100 MG TABLET (FP) PO SCH (21:13)
[2017-10-18] MEDS: traZODone HCL 50 MG TABLET (FP) PO SCH (21:13)
[2017-10-19] MEDS ORDERED: METHADONE HCL 40 MG DISPERSABLE TABLET ONE (05:49)
[2017-10-19] MEDS ORDERED: METHADONE HCL 10 MG TABLET ONE (05:49)
[2017-10-19] MEDS: METHADONE 120 MG, METHADONE 20 MG PO SCH (06:01)
[2017-10-19] MEDS: PRENATAL VITAMINS W/ FOLIC ACID TABLET (FP) PO SCH (09:48)
[2017-10-19] MEDS: NICOTINE 14 MG/24 HOURS TOPICAL PATCH TD SCH (09:48)
[2017-10-19] MEDS: traZODone HCL 50 MG TABLET (FP) PO SCH (22:02)
[2017-10-19] MEDS: THIAMINE HCL 100 MG TABLET (FP) PO SCH (22:03)
[2017-10-20] MEDS ORDERED: METHADONE HCL 10 MG TABLET ONE (05:00)
[2017-10-20] MEDS ORDERED: METHADONE HCL 40 MG DISPERSABLE TABLET ONE (05:00)
[2017-10-20] MEDS: METHADONE 120 MG, METHADONE 20 MG PO SCH (05:53)
[2017-10-20] MEDS: PRENATAL VITAMINS W/ FOLIC ACID TABLET (FP) PO SCH (09:49)
[2017-10-20] MEDS: NICOTINE 14 MG/24 HOURS TOPICAL PATCH TD SCH (09:49)
[2017-10-21] MEDS: traZODone HCL 50 MG TABLET (FP) PO SCH ×2 (00:07→22:52)
[2017-10-21] MEDS: THIAMINE HCL 100 MG TABLET (FP) PO SCH ×2 (00:07→22:52)
[2017-10-21] MEDS ORDERED: METHADONE HCL 40 MG DISPERSABLE TABLET ONE (04:03)
[2017-10-21] MEDS ORDERED: METHADONE HCL 10 MG TABLET ONE (04:03)
[2017-10-21] MEDS: METHADONE 120 MG, METHADONE 20 MG PO SCH (05:53)
[2017-10-21] MEDS: NICOTINE 14 MG/24 HOURS TOPICAL PATCH TD SCH (09:53)
[2017-10-21] MEDS: PRENATAL VITAMINS W/ FOLIC ACID TABLET (FP) PO SCH (09:53)
[2017-10-22] MEDS ORDERED: METHADONE HCL 10 MG TABLET ONE (04:09)
[2017-10-22] MEDS ORDERED: METHADONE HCL 40 MG DISPERSABLE TABLET ONE (04:09)
[2017-10-22] MEDS: METHADONE 120 MG, METHADONE 20 MG PO SCH (05:55)
[2017-10-22] MEDS: PRENATAL VITAMINS W/ FOLIC ACID TABLET (FP) PO SCH (10:12)
[2017-10-22] MEDS: NICOTINE 14 MG/24 HOURS TOPICAL PATCH TD SCH (10:13)
[2017-10-22] MEDS: traZODone HCL 50 MG TABLET (FP) PO SCH (23:26)
[2017-10-22] MEDS: THIAMINE HCL 100 MG TABLET (FP) PO SCH (23:26)
[2017-10-23] MEDS ORDERED: METHADONE HCL 10 MG TABLET ONE (03:15)
[2017-10-23] MEDS ORDERED: METHADONE HCL 40 MG DISPERSABLE TABLET ONE (03:15)
[2017-10-23] MEDS: METHADONE 120 MG, METHADONE 20 MG PO SCH (06:00)
[2017-10-23] MEDS: PRENATAL VITAMINS W/ FOLIC ACID TABLET (FP) PO SCH (09:43)
[2017-10-23] MEDS: NICOTINE 14 MG/24 HOURS TOPICAL PATCH TD SCH (09:43)
[2017-10-23] MEDS: traZODone HCL 50 MG TABLET (FP) PO SCH (21:59)
[2017-10-23] MEDS: THIAMINE HCL 100 MG TABLET (FP) PO SCH (21:59)
[2017-10-24] MEDS ORDERED: METHADONE HCL 10 MG TABLET ONE (03:46)
[2017-10-24] MEDS ORDERED: METHADONE HCL 40 MG DISPERSABLE TABLET ONE (03:46)
[2017-10-24] MEDS: METHADONE 120 MG, METHADONE 20 MG PO SCH (05:46)
[2017-10-24] MEDS: NICOTINE 14 MG/24 HOURS TOPICAL PATCH TD SCH (09:29)
[2017-10-24] MEDS: PRENATAL VITAMINS W/ FOLIC ACID TABLET (FP) PO SCH (09:29)
[2017-10-24] MEDS ORDERED: PT OWN MED DRAWER 7, Y5N ONE ×3 (10:19→15:19)
[2017-10-24] MEDS: traZODone HCL 50 MG TABLET (FP) PO SCH (22:16)
[2017-10-24] MEDS: THIAMINE HCL 100 MG TABLET (FP) PO SCH (22:17)
[2017-10-25] MEDS ORDERED: METHADONE HCL 10 MG TABLET ONE (04:11)
[2017-10-25] MEDS ORDERED: METHADONE HCL 40 MG DISPERSABLE TABLET ONE (04:11)
[2017-10-25] MEDS: METHADONE 120 MG, METHADONE 20 MG PO SCH (05:52)
[2017-10-25] MEDS: PRENATAL VITAMINS W/ FOLIC ACID TABLET (FP) PO SCH (09:28)
[2017-10-25] MEDS: NICOTINE 14 MG/24 HOURS TOPICAL PATCH TD SCH (09:28)
[2017-10-25] MEDS: THIAMINE HCL 100 MG TABLET (FP) PO SCH (22:07)
[2017-10-25] MEDS: traZODone HCL 50 MG TABLET (FP) PO SCH (22:07)
[2017-10-26] MEDS ORDERED: METHADONE HCL 10 MG TABLET ONE (03:19)
[2017-10-26] MEDS ORDERED: METHADONE HCL 40 MG DISPERSABLE TABLET ONE (03:19)
[2017-10-26] MEDS: METHADONE 120 MG, METHADONE 20 MG PO SCH (05:51)
[2017-10-26] MEDS: PRENATAL VITAMINS W/ FOLIC ACID TABLET (FP) PO SCH (09:27)
[2017-10-26] MEDS: NICOTINE 14 MG/24 HOURS TOPICAL PATCH TD SCH (09:27)
--- NOTE | 2017-10-26 11:44 | PN ---
Psychiatric Progress Note Vital Signs: Vital Signs Period Temp Pulse Resp BP Sys/See Pulse Ox Last 24 Hr 97.3 F 50 18-18 121/76 Date of Session: 10/26/17 Chief Complaint:: Discharge Note HPI: Patient addressing Alvohol and Cocaine Depedence comorbid with Opioid Dependence on Agonist Therapy, Nicotine Dependence, Substance-Induced Mood Disorder sand Substance-Induced Sleep Disorder Current Medications: Active Medications Generic Name Dose Route Start Last Admin Trade Name Freq PRN Reason Stop Dose Admin Acetaminophen 650 mg 10/11/17 12:01 Tylenol - PO Q4H PRN FEVER Al Hydroxide/Mg Hydroxide 30 ml 10/11/17 12:11 Mylanta Oral Suspension - PO Q6H PRN DYSPEPSIA Eucalyptus/Menthol/Phenol/Sorbitol 1 each 10/11/17 12:01 Cepastat Lozenge - MM Q4H PRN SORE THROAT Guaifenesin 10 ml 10/11/17 12:01 Robitussin Dm - PO Q6H PRN COUGH Ibuprofen 400 mg 10/11/17 12:11 Motrin - PO Q6H PRN Pain Level 4-6 Loperamide HCl 4 mg 10/11/17 12:11 Imodium - PO Q6H PRN DIARRHEA Magnesium Citrate 300 ml 10/11/17 12:01 Citroma - PO Q48H PRN CONSTIPATION Magnesium Hydroxide 30 ml 10/11/17 12:11 Milk Of Magnesia - PO DAILY PRN CONSTIPATION Melatonin 5 mg 10/11/17 22:00 Melatonin PO HS PRN INSOMNIA Methadone HCl 120 mg/ 140 mg 10/25/17 06:00 10/26/17 05:51 Methadone HCl 20 mg PO 10/31/17 06:01 140 mg DAILY@0600 ALEKSANDER Administration Nicotine 14 mg 10/12/17 10:00 10/26/17 09:27 Nicoderm Patch - TD Not Given DAILY ALEKSANDER Nicotine Polacrilex 2 mg 10/11/17 12:01 Nicorette Gum - BUC Q2H PRN NICOTINE REPLACEMENT RX Multivit/Folic Acid/Iron 1 tab 10/12/17 10:00 10/26/17 09:27 Vitamins (Sjr) - PO 1 tab DAILY ALEKSANDER Administration Pseudoephedrine/Triprolidine 1 combo 10/11/17 12:01 Actifed - PO TID PRN NASAL CONGESTION Thiamine HCl 100 mg 10/11/17 22:00 10/25/17 22:07 Vitamin B1 - PO Not Given HS ALEKSANDER Trazodone HCl 50 mg 10/13/17 22:00 10/25/17 22:07 Desyrel - PO Not Given HS ALEKSANDER Current Side Effect: No Lab tests ordered: Yes Lab tests reviewed: Yes Provider note:: Patient will complete this program on 10/27/17. He has met his treatment goals and will continue to address his issues in assisted residential treatment at [facility]. Told writer editor that from his participation in this program, he has learned the importance of making meetings and have a sponsor. He responded well to Trazadone 50 mg po HS for insomnia. Script for 30 days supply of medication will be electronically transmitted to [facility] at [address] [place] [address] . He is scheduled for discharge on 04/05 Total face to face time:: 35 Mental Status Exam - Mental Status Exam Alert and Oriented to: Time, Place, Person Cognitive Function: Fair Mood: Hopeful, Euthymic Affect: Appropriate Patient Behavior: Cooperative Speech Pattern: Clear Voice Loudness: Normal Thought Process: Intact Thought Disorder: Not Present Hallucinations: Denies Suicidal Ideation: Denies Homicidal Ideation: Denies Insight/Judgement: Fair Sleep: Fair Appetite: Good Muscle strength/Tone: Normal Gait/Station: Normal Psychiatric Treatment Plan - Problem List (4) Nicotine dependence Qualifiers: Nicotine product type: cigarettes Substance use status: in withdrawal Qualified Code(s): F17.213 - Nicotine dependence, cigarettes, with withdrawal (6) Alcohol dependence with withdrawal Qualifiers: Complication of substance-induced condition: uncomplicated Qualified Code(s ): F10.230 - Alcohol dependence with withdrawal, uncomplicated Initial treatment plan: Patient will be discharged tomorrow and referred to [facility] for assisted residential treatment
[2017-10-26] MEDS: THIAMINE HCL 100 MG TABLET (FP) PO SCH (23:06)
[2017-10-26] MEDS: traZODone HCL 50 MG TABLET (FP) PO SCH (23:06)
[2017-10-27] MEDS: METHADONE 120 MG, METHADONE 20 MG PO SCH (06:37)
[2017-10-27 06:43] VITALS: BP 120/76; PULSE 57; TEMP 98
== END 2017-10-27 06:45 | disposition home or self-care (01) | DRG 772 ==
LOC: YASAS 11:26 → Y3W 11:28
PROVIDERS: ADMIT Psychiatry & Neurology Psychiatry; ATTEND Psychiatry & Neurology Psychiatry
PROC: HZ42ZZZ Group Counseling for Substance Abuse Treatment, Cognitive-Behavioral (ICD-10-PCS; principal; 2017-10-11)
DX: F10.20 Alcohol dependence, uncomplicated (principal); F11.20 Opioid dependence, uncomplicated; F14.20 Cocaine dependence, uncomplicated; F17.213 Nicotine dependence, cigarettes, with withdrawal; F19.24 Other psychoactive substance dependence with psychoactive substance-induced mood disorder; G47.00 Insomnia, unspecified; Z86.69 Personal history of other diseases of the nervous system and sense organs